=== PATIENT | male | born 1995 | race African-American/Black ===

== ENCOUNTER 2019-04-29 11:58 | Emergency (ER) | payer OTHER ==
[2019-04-29 12:19] LABS: #Eosinphils 0.1 thou/uL (0.0-0.7); #Lymphocytes 1.3 thou/uL (1.20-3.40); #Monocytes 0.7 thou/uL (0.11-0.59); #Neutrophils 12.2 thou/uL (1.40-6.50); %Basophils 0.2 % (0.0-1.0); %Eosinophils 0.4 % (0.0-10.0); %Lymphocytes 9.4 % (21.0-51.0); %Monocytes 4.7 % (0.0-10.0); %Neutrophils 85.3 % (42.0-75.0); Hemoglobin 13.9 g/dL (14.0-18.0); Mean Corpuscular HGB CONC 32.4 g/dL (32.0-36.0); Mean Corpuscular Hemoglobin 27.8 pg (27.0-31.0); Mean Corpuscular Volume 85.7 fL (78.0-98.0); Mean Platelet Volume 7.7 fL (7.4-10.4); Platelet Count 234 thou/uL (130-400); RBC Distribution Width 11.4 % (11.5-14.5); Red Blood Cell (RBC) Count 5.01 mill/uL (4.70-6.10); White Blood Cell (WBC) Count 14.3 thou/uL (4.8-10.8)
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
[2019-04-29] MEDS ORDERED: Adacel (T-DAP) 0.5 ML SYRINGE ONE (12:29)
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
[2019-04-29 12:44] LABS: ALT (SGPT) 57 U/L (8-55); AST (SGOT) 56 U/L (5-34); Albumin 4.1 g/dL (3.5-5.0); Alkaline Phosphatase 74 U/L (40-150); Anion Gap 14 mmol/L (10-20); BUN (Urea Nitrogen) 15 mg/dL (8.9-20.6); Bilirubin, Total 1.5 mg/dL (0.2-1.2); Calc. Creatinine Clearance 0 mL/min (70-130); Calcium 9.7 mg/dL (7.8-10.44); Carbon Dioxide 21 mmol/L (22-29); Chloride 105 mmol/L (98-107); Estimated GFR-MDRD Greater than 90; Globulin 2.9 g/dL (2.4-3.5); Glucose 112 mg/dL (70-105); Potassium 3.9 mmol/L (3.5-5.1); Sodium 136 mmol/L (136-145)
[2019-04-29] MEDS ORDERED: Fentanyl 100 MCG/2 ML VIAL ONE (12:49)
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
[2019-04-29] MEDS ORDERED: Morphine 4 MG/ML VIAL ONE (14:08)
== END 2019-04-29 16:06 | disposition short-term general hospital (02) ==
LOC: ERS 11:58
DX: S72.001A Fracture of unspecified part of neck of right femur, initial encounter for closed fracture (principal); S81.011A Laceration without foreign body, right knee, initial encounter; S61.210A Laceration without foreign body of right index finger without damage to nail, initial encounter; F17.290 Nicotine dependence, other tobacco product, uncomplicated; Z79.899 Other long term (current) drug therapy; W22.8XXA Striking against or struck by other objects, initial encounter
CPT/HCPCS: 70450; 71260; 72125; 72170; 74177; 80053; 85025; 86850; 86900; 86901; 90471; 90715; 96365; 96375; G0390; J0690; J2270; J3010